=== PATIENT | female | born 1950 | race Caucasian/White ===

== ENCOUNTER 2016-12-13 18:06 | Emergency (ER) | payer MEDICAID, OTHER ==
[~2016-12-13] VITALS: Ht 167.6 cm; Wt 58.0 kg
[2016-12-13 18:11] VITALS: Ht 167.6 cm; Wt 58.0 kg
[2016-12-13] MEDS ORDERED: LEVO75TA5 PO (20:40)
[2016-12-13] MEDS ORDERED: GLIP5TAB13 PO (20:40)
[2016-12-13] MEDS ORDERED: SMV40T PO (20:40)
[2016-12-13] MEDS ORDERED: MTF1000T PO (20:40)
[2016-12-13] MEDS ORDERED: METO-429 PO (20:40)
[2016-12-13] MEDS ORDERED: METF1000 PO (20:44)
[2016-12-13 20:45] VITALS: TEMP 98
--- NOTE | 2016-12-13 20:52 | ERD ---
ER Documentation Chief Complaint Date/Time DATE: 12/13/16 TIME: 20:51 Chief Complaint LOW BLOOD SUGAR READING AT HOME 80'S,NEEDS MED REFILL HPI 66-year-old female. Hungarian speaking. Family member interpreting. The patient presents because of a low blood sugar that was reported to be in the 80s at home. She became anxious. The patient was brought to the emergency room. She has not been taking her medication for approximately 3 weeks. She is asking for medication refill. She denies any chest pain shortness breath headache or vision changes, no slurred speech. She is asymptomatic currently. ROS All systems reviewed and are negative except as per history of present illness. Medications Home Meds Active Scripts Simvastatin (Simvastatin) 40 Mg Tablet, 40 MG PO DAILY, #30 TAB Prov:JERAD BAI MD 12/13/16 Levothyroxine Sodium* (Levothyroxine Sodium*) 75 Mcg Tablet, 75 MCG PO BEFORE BREAKFAST, #30 TAB Prov:JERAD BAI MD 12/13/16 Glipizide* (Glipizide*) 5 Mg Tablet, 5 MG PO BID for 30 Days, TAB Prov:JERAD BAI MD 12/13/16 Metoprolol Tartrate* (Lopressor*) 50 Mg Tab, 50 MG PO BID, #60 TAB Prov:JERAD BAI MD 12/13/16 Metformin* (Glucophage*) 1,000 Mg Tablet, 1000 MG PO BID for 30 Days, TAB Prov:JERAD BAI MD 12/13/16 Allergies Allergies: Coded Allergies: No Known Allergy (Unverified , 12/13/16) PMhx/Soc History of Surgery: Yes (CABG 2006, STENTS) Anesthesia Reaction: No Hx Neurological Disorder: No Hx Respiratory Disorders: No Hx Cardiac Disorders: Yes (HTN, HLD) Hx Psychiatric Problems: No Hx Miscellaneous Medical Probl: Yes (DM, HYPOTHYROID) Hx Alcohol Use: No Hx Substance Use: No Hx Tobacco Use: No Smoking Status: Never smoker FmHx Family History: diabetes Physical Exam Vitals Vital Signs Date Time Temp Pulse Resp B/P Pulse Ox O2 Delivery O2 Flow Rate FiO2 12/13/16 20:45 98.0 71 18 164/75 99 Room Air 12/13/16 18:11 98.0 84 18 139/63 98 Physical Exam General: Well developed, well nourished, no acute distress Head: Normocephalic, atraumatic. Eyes: Pupils equally reactive, EOM intact ENT: Moist mucous membranes Neck: Supple, no lymphadenopathy Respiratory: Lungs clear bilaterally, no distress Cardiovascular: RRR, no murmurs, rubs, or gallops Abdominal: Soft, non-tender, non-distended, no peritoneal signs : Deferred MSK: No edema, no unilateral swelling, 5/5 strength Neurologic: Alert and oriented, moving all extremities, normal speech, no focal weakness, no cerebellar signs Skin: No rash Psych: Normal mood Results 24 hrs Laboratory Tests Test 12/13/16 18:17 12/13/16 20:35 Bedside Glucose 175mg/dL 201mg/dL Procedures/MDM The patient presents for medication refill. She is asymptomatic. Her lowest glucose was 80. Her glucose now is 201. The patient is asymptomatic. No signs of stroke, ACS, DKA. Indication for laboratory testing or diagnostic imaging. Exact he may be playing a role. Medications have been refilled for 1 month. Patient is following up with primary care physician, she is transitioning to a new provider. She has good social resources and is otherwise extremely well-appearing. We discussed follow up with the patient's primary care doctor within 24 to 48 hours as needed. We also discussed return to the emergency room for worsening symptoms or worsening condition. Outpatient referral: [None required] Discharge Medications: Glipizide, metoprolol, metformin, levothyroxine, simvastatin Departure Diagnosis: Primary Impression: Medication refill Condition: Good Patient Instructions: Taking Medicine Safely Referrals: [facility] () Usted se carmona hecho un examen mdico de control que le indica que no est en sugey condicin que requiera tratamiento urgente en el Departamento de Emergencia. Un estudio ms profundo y el tratamiento de perez condicin pueden esperar sin ningn riesgo hasta que usted sea atendida/o en el consultorio de perez mdico o sugey cl wendy. Es responsabilidad suya arreglar sugey kemal para el seguimiento del marleni. MANEJO DE CONDICIONES NO URGENTES EN EL FUTURO 1) Si usted tiene un mdico de atencin primaria: Usted debera llamar a perez mdico de atencin primaria antes de venir al departamento de emergencia. Despus de las horas de consultorio, perez doctor o perez asociado/a est disponible por telfono. El mdico o enfermero de arianna en el servicio telefnico puede asesorarle por vidal medio para atender el problema, o marleni contrario se puede programar sugey kemal. 2) Si usted no tiene un mdico de atencin primaria: Llame al mdico o clnica de referencia que aparece abajo rea las horas de consultorio para hacer sugey kemal para que le vean. CLINICAS: [facility] [phone] [address] [facility] [phone] [facility] [phone] [address] [facility] [phone] [address] [facility] [phone] [facility] [phone] [address] [facility]. [facility] () Usted se carmona hecho un examen mdico de control que le indica que no est en sugey condicin que requiera tratamiento urgente en el Departamento de Emergencia. Un estudio ms profundo y el tratamiento de perez condicin pueden esperar sin ningn riesgo hasta que usted sea atendida/o en el consultorio de perez mdico o sugey cl wendy. Es responsabilidad suya arreglar sugey kemal para el seguimiento del marleni. MANEJO DE CONDICIONES NO URGENTES EN EL FUTURO 1) Si usted tiene un mdico de atencin primaria: Usted debera llamar a perez mdico de atencin primaria antes de venir al departamento de emergencia. Despus de las horas de consultorio, perez doctor o perez asociado/a est disponible por telfono. El mdico o enfermero de arianna en el servicio telefnico puede asesorarle por vidal medio para atender el problema, o marleni contrario se puede programar sugey kemal. 2) Si usted no tiene un mdico de atencin primaria: Llame al mdico o condado institucions de referencia que aparece abajo rea las horas de consultorio para hacer sugey kemal para que le vean. SI USTED NO PUEDE PAGAR PARA DEISY UN MEDICO puede ir a: [facility] [id number] [place] [address] [facility] [address] [place] [address] [facility] [address] [place] [address] [facility] [address] [place], [place] [id number] Additional Instructions: Llame al doctor nombrado abajo (Referral Sources) MAANA y trinity sugey KEMAL PARA DENTRO DE SUGEY SEMANA. Dgale a la secretaria que nosotros le instruimos hacer esta kemal.Avise o llame si perez condicin se empeora antes de la kemal. JERAD BAI MD Dec 13, 2016 20:52
[2016-12-13 20:55] VITALS: BP 164/95; PULSE 79; RESP 18
== END 2016-12-13 20:55 | disposition home or self-care (01) ==
LOC: E/R 18:06
DX: Z76.0 Encounter for issue of repeat prescription (principal); I10 Essential (primary) hypertension; E11.9 Type 2 diabetes mellitus without complications; E03.9 Hypothyroidism, unspecified; Z79.84 Long term (current) use of oral hypoglycemic drugs; Z95.5 Presence of coronary angioplasty implant and graft
CPT/HCPCS: 82962; Z7502; 99281

== ENCOUNTER 2018-03-10 10:14 | Emergency (ER) | END 2018-03-10 11:32 | disposition home or self-care (01) ==